=== PATIENT | female | born 2000 | race African-American/Black ===

== ENCOUNTER 2023-01-18 00:57 | Day surgery (SDC) | payer OTHER, SELFPAY ==
[2023-01-06 14:28] VITALS: BMI 45.1
--- NOTE | 2023-01-06 14:33 | PC.NURSE ---
Report to the Outpatient Waiting Room, entrance under the green pavilion located off [facility], at time 1215 on date 01/18/23. Planned Procedure Time: 1415. Time changes happen often and if your time is changed the preop area will call you the afternoon before. - You and your visitor will be asked to self-screen and do not enter if you have any COVID symptoms. - A mask is optional within the hospital at this time. Patients may have clear liquids (water, carbonated beverages, clear teas, apple juice) until 3 hours prior to surgery with a maximum of 20 ounces. - No food from midnight until time of surgery Take the following medications with a SIP of water the morning of surgery: NONE DO NOT STOP ANY OF YOUR OTHER PRESCRIPTION MEDICATIONS PRIOR TO SURGERY ?EXCEPT THE FOLLOWING Medications to discontinue per physician: VITAMINS/SUPPLEMENTS Date to take last dose: 01/14/23 Please no make-up, nail czech, hairspray, perfume, deodorant, or body powder the day of surgery. No jewelry (including any body piercings) or valuables the day of surgery, leave them at home. Please take a shower or bath the night before, or the morning of, surgery with an antibacterial soap. Wear comfortable, loose fitting clothing. - Jewelry must be removed prior to entering the operating room. Rings and piercings that are not removed may be cut off. - The hospital will not accept responsibility for valuables. - Please leave all valuables, including medications, at home the day of surgery. If you are going home after surgery, a licensed special education bus driver must drive you home. - NO public transportation without another adult if you receive anesthesia. - We recommend that an adult stay with you for 24 hours following discharge. - We also recommend that you do not drive, make important decision, drink alcoholic beverages, or take any drugs that were not prescribed by your health care provider for at least 24 hours after your discharge time. Follow any additional instructions given to you from your surgeon. If you or anyone in your household have experienced Covid symptoms in the past week, please notify your surgeon or the nurse liaison at the phone number below for possible testing. Telephone instructions given to PT - MATA BENAVIDEZ and asked if any additional questions and then verbalized understanding. Patient advised to call surgeon office or pre surgery nurse liaison [phone] if any additional questions.
--- NOTE | 2023-01-18 07:29 | WPDHPUPDATE1 ---
History and Physical Update Update Date/Time: 01/18/23 07:29 History and Physical has been reviewed, including an updated exam of the patient. There are NO changes in the patient's condition. Risks, benefits, and alternatives have been discussed and questions answered. Patient agrees to proceed with hysteroscopy with polypectomy.
--- NOTE | 2023-01-18 12:18 | WPDANESEPPF ---
Anes - Initial Pre Proc Eval Procedure: Operation Date: 01/18/23 14:15 Proposed Procedures p Hysteroscopy Dilation and Curettage with Polypectomy - Yudy Qureshi MD Date/Time: 01/18/23 12:18 Surgeon: Yudy Qureshi MD Pre Op Diagnosis: Endometrial Polyp Patient Data Age: 22 Gender: F Height: 1.68 m Weight: 127 kg Allergies Allergy/AdvReac Type Severity Reaction Status Date / Time No Known Allergies Allergy Unverified 01/06/23 14:27 Home Medications Medication Instructions Recorded Confirmed Type ergocalciferol (vitamin D2) 1,250 1,250 mcg PO WEEKLY 01/06/23 01/06/23 History mcg (50,000 unit) capsule metformin 500 mg tablet,extended 500 mg PO DAILY 01/06/23 01/06/23 History release 24 hr vits no.126-ferrous fum 1 tablet PO DAILY 01/06/23 01/06/23 History 28 mg iron-folic acid 800 mcg tablet (Classic ) Patient hx anesthesia problems: none Family hx anesthesia problems: none Results Review: All pre-operative results and documents have been reviewed as part of the pre-operative evaluation. [facility] Past Medical History Medical History History of polycystic ovarian syndrome Family History Family History Father Hypertension Mother Multiple sclerosis Social History Social History Smoking status: Never smoker Alcohol intake: current Drinks per week: 2 Alcohol use details: social Substance use: current Substance use type: marijuana Lack of Transportation: No Lack of Food: Never True Current Housing: I Have Housing Concerned About Future Housing: No Difficulty Paying Gas/Electric Bills: No Difficulty Paying for Meds: No Currently Unemployed: No Education: High School Diploma/GED Living arrangements: other Additional living arrangements comments: WITH BOYFRIEND Occupation/Education: occupation Gender identity (if verbalized by the patient): Female Sexual Orientation (if Verbalized by the Patient): Straight or Heterosexual Spiritual care concerns: No Anes - Eval Final PreProcedure Day of Procedure 01/18/23 12:18 Patient weight: morbidly obese Heart: regular rate and rhythm Lungs: clear to auscultation Airway: Mallampati scale class II Neurological: alert and oriented Last oral intake: >/= 8 hours ASA classification: III Emergent: no Anesthetic plan: proceed Anesthesia type and monitoring: general GIVS and standard monitoring Results Review: All pre-operative results and documents have been reviewed as part of the pre-operative evaluation. Informed Consent: The patient's anesthetic plan and its attendant risks and benefits were discussed with the patient/family/POA. Questions were solicited and answers provided to the satisfaction of the patient/family/POA.
[2023-01-18 12:23] VITALS: BP 135/90; PULSE 78; RESP 16; TEMP 36.2; O2SAT 100
[2023-01-18] MEDS: KETOROLAC 30 MG/ML VIAL (*BKC) IV PUSH (13:56)
[2023-01-18 14:00] VITALS: BP 146/76; PULSE 90; RESP 20; O2SAT 95
[2023-01-18] MEDS: LACTATED RINGERS 1,000 ML 30 ML IV CONT ×2 (14:00)
--- NOTE | 2023-01-18 14:00 | P.OP_ITS ---
Procedure Note - Detailed Date of Procedure 01/18/23 Pre-op Diagnosis Endometrial Polyp Post-op Diagnosis Same Procedure Performed Hysteroscopy, D&C, myomectomy Surgeon Yudy Qureshi MD Anesthesia MAC Findings Stenotic, long cervix. Uterus sounded to 10cm. Initially cavity was abnormal and hard to visualize due to multiple polyps. I proceeded with gentle D&C to visualize cavity. Tubal ostia visualized. Small fibroid was then noted after D&C, and removed. Good hemostasis noted. Description of Procedure Liseth was taken to the operating room where she was placed under sedation without complications. She was then prepped and draped in the usual sterile f ashion in the dorsal lithotomy position with her legs in low Edwin stirrups. A time-out was performed and no perioperative antibiotics were indicated. A bivalve speculum was placed within the vagina where the cervix was easily identified. The anterior lip of the cervix was grasped with a single-tooth tenaculum. The cervix was then serially dilated to allow for the hysteroscope. The hysteroscope was advanced into the uterine cavity with the above findings noted. A gentle curettage was then performed with a significant amount of polyps/tissue removed. The hysteroscope was then advanced back into the cavity and a small fibriod was noted. Using the tissue shaver a large portion of the fibroid was removed. The fundus appeared normal and bilateral tubal ostia visualized. Good hemostasis was noted. All instruments were removed from the vagina. Sponge, lap, instrument, and needle counts were correct at the end of the procedure. Patient was awoken from anesthesia and taken to recovery with plans of same-day discharge home. Estimated Blood Loss 5 IV Fluids 1,300 (Fluid deficit: 230cc) Pathology Yes (endometrial curettings and shaving) Complications No immediate complications Condition Stable Disposition Same day [facility] Billing Surgery - Charge Forward: Surgery Billing
[2023-01-18] MEDS: oxyCODONE HCL (*CRX) 5 MG TAB IR PO (14:28)
[2023-01-18 14:30] VITALS: BP 142/86; PULSE 71; RESP 16
[2023-01-18] MEDS: fentaNYL CITRATE INJ (*CRX) 100 MCG/2 ML VIAL 25 MCG IV PUSH ×2 (14:54→15:00)
[2023-01-18 15:00] VITALS: BP 138/86; PULSE 72; RESP 16
[2023-01-18 15:20] VITALS: BP 136/82; PULSE 71; RESP 16
== END 2023-01-18 15:30 | disposition home or self-care (01) ==
PROVIDERS: PCP Nurse Practitioner Family; Visit Provider Obstetrics & Gynecology
PROC: 0U5B8ZZ Destruction of Endometrium, Via Natural or Artificial Opening Endoscopic (ICD-10-PCS; CPT 58563; principal; 2023-01-18 14:15)
DX: N84.0 Polyp of corpus uteri (principal); E28.2 Polycystic ovarian syndrome; F12.90 Cannabis use, unspecified, uncomplicated; E66.01 Morbid (severe) obesity due to excess calories; Z68.41 Body mass index [BMI] 40.0-44.9, adult; Z79.84 Long term (current) use of oral hypoglycemic drugs
CPT/HCPCS: 58558; 88305; A9270; J1885; J2250; J2405; J2704; J3010; J7120

== ENCOUNTER 2023-03-20 10:32 | Outpatient (CLI) | payer OTHER, SELFPAY ==
[2023-03-20 11:57] LABS: Basophils Percent Auto 0.4 % (0.2-1.2); Eosinophils Percent Auto 0.1 % (0-4.4); Hematocrit 41.5 % (37.0-47.0); Hemoglobin 13.2 g/dL (12.0-15.0); Immature Granulocyte Absolute 0.02 K/mm3 (0.00-0.031); Immature Granulocyte Percent A 0.3 % (0-0.5); Lymphocytes Absolute Auto 1.74 K/mm3 (0.9-3.2); Lymphocytes Percent Auto 21.9 % (18.3-44.2); Mean Corpuscular HGB Conc 31.8 g/dl (32-36); Mean Corpuscular Hemoglobin 26.3 pg (26-34); Mean Corpuscular Volume 82.8 fl (80-100); Mean Platelet Volume 10.7 fl (7.4-10.4); Monocytes Absolute Auto 0.6 K/mm3 (0.1-0.6); Monocytes Percent Auto 6.9 % (2.6-8.5); Neutrophils Absolute Auto 5.6 K/mm3 (1.3-6.7); Neutrophils Percent Auto 70.4 % (45.5-73.1); Platelet Count Result 308 k/mm3 (150-375); Red Blood Count 5.01 M/mm3 (4.2-5.4); Red Cell Distribution Width 15.6 % (11.5-14.5); White Blood Count 7.9 K/mm3 (4.5-10.0)
[2023-03-20 12:09] LABS: Glucose 1 Hour PP 50gm Dose 156 mg/dL
[2023-03-20 13:12] LABS: Hepatitis B Surface Antigen Negative (Negative); Rubella IgG Antibody 25.3 IU/ML
[2023-03-22 13:03] LABS: Rapid Plasma Reagin Non-Reactive (NonReactive)
== END 2023-03-20 10:33 | disposition home or self-care (01) ==
LOC: ANHLAB 10:34
PROVIDERS: PCP Nurse Practitioner Family; Visit Provider Student in an Organized Health Care Education/Training Program
DX: N94.89 Other specified conditions associated with female genital organs and menstrual cycle (principal)
CPT/HCPCS: 36415; 82947; 84702; 85025; 85660; 86592; 86644; 86762; 86787; 86850; 86900; 86901; 87086; 87340

== ENCOUNTER 2023-03-27 08:51 | Outpatient (CLI) | payer OTHER, SELFPAY ==
[2023-03-27 09:24] LABS: Glucose Fasting Gestational 87 mg/dL (>/=95)
[2023-03-27 10:58] LABS: Glucose 1 Hour Gest 191 mg/dL (>/=180)
[2023-03-27 12:27] LABS: Glucose 2 Hour Gest 142 mg/dL (>/= 155)
[2023-03-27 12:46] LABS: Glucose 3 Hour Gest 46 mg/dL (>/=140)
== END 2023-03-27 08:52 | disposition home or self-care (01) ==
LOC: ANHLAB 08:52
PROVIDERS: PCP Nurse Practitioner Family; Visit Provider Student in an Organized Health Care Education/Training Program
DX: O99.810 Abnormal glucose complicating pregnancy (principal)
CPT/HCPCS: 36415; 82951; 82952

== ENCOUNTER 2023-08-15 21:05 | Observation (INO) | payer OTHER, SELFPAY ==
[2023-08-15 21:37] VITALS: BP 124/71; PULSE 74
[2023-08-15 21:45] VITALS: BP 122/74; PULSE 79
[2023-08-15 21:47] LABS: Glucose Point of Care 59 mg/dl (65-105)
[2023-08-15 22:00] VITALS: BP 106/77; PULSE 86
[2023-08-15 22:25] VITALS: BMI 43.7
--- NOTE | 2023-08-15 22:25 | OBADM ---
This patient, Liseth Rodríguez, admitted to the OB room OB Post 116 for observation. Patient/family oriented to hospital policies and general routines including ID bracelet, bed and alarms, visiting hours, pain management, procedures, bathroom and other care routines, personal items, smoking policy, room service/diet, and visiting hours. Patient/Family are encouraged to report perceived risks to care and to ask questions if they do not understand what they are told or what they should do.
--- NOTE | 2023-08-18 09:23 | PM.OBTRLD ---
OB - Triage/Final Diagnosis Visit Information Reason for evaluation: threatened labor Comments/Additional reasons for admission: I have assessed the risk for this patient, Liseth Rodríguez, and determined that she would benefit from observation care. Evaluation Laboratory results: Laboratory Tests 08/15/23 21:41 POC Capillary Glucose 59 L*
== END 2023-08-15 22:37 | disposition home or self-care (01) ==
PROVIDERS: Admitting Provider Student in an Organized Health Care Education/Training Program; PCP Nurse Practitioner Family; Visit Provider Obstetrics & Gynecology
DX: O47.03 False labor before 37 completed weeks of gestation, third trimester (principal); Z3A.29 29 weeks gestation of pregnancy
CPT/HCPCS: 82948; G0378; G0379

== ENCOUNTER 2023-09-14 09:47 | Outpatient (CLI) | payer OTHER, SELFPAY ==
[2023-09-14 10:15] VITALS: BP 137/89; PULSE 80
[2023-09-14 10:20] LABS: Basophils Percent Auto 0.3 % (0.2-1.2); Eosinophils Percent Auto 0.3 % (0-4.4); Hematocrit 33.5 % (37.0-47.0); Hemoglobin 10.7 g/dL (12.0-15.0); Immature Granulocyte Absolute 0.02 K/mm3 (0.00-0.031); Immature Granulocyte Percent A 0.3 % (0-0.5); Lymphocytes Absolute Auto 1.61 K/mm3 (0.9-3.2); Lymphocytes Percent Auto 23.1 % (18.3-44.2); Mean Corpuscular HGB Conc 31.9 g/dl (32-36); Mean Corpuscular Hemoglobin 26.1 pg (26-34); Mean Corpuscular Volume 81.7 fl (80-100); Monocytes Absolute Auto 0.7 K/mm3 (0.1-0.6); Monocytes Percent Auto 9.3 % (2.6-8.5); Neutrophils Absolute Auto 4.7 K/mm3 (1.3-6.7); Neutrophils Percent Auto 66.7 % (45.5-73.1); Platelet Count Result 236 k/mm3 (150-375); Red Cell Distribution Width 14.9 % (11.5-14.5)
[2023-09-14 10:31] VITALS: BP 130/79; PULSE 75
[2023-09-14 10:31] LABS: Total Protein Urine Random 28 mg/dL
[2023-09-14 10:34] LABS: Alanine Aminotransferase 17 U/L (6-35); Albumin Level 3.5 g/dL (3.5-5.1); Alkaline Phosphatase 109 U/L (38-126); Anion Gap 7 mmol/L (4-12); Aspartate Amino Transferase 25 U/L (14-36); Bilirubin,Total 0.3 mg/dL (0.2-1.3); Blood Urea Nitrogen 8 mg/dL (7-17); Calcium 9.5 mg/dL (8.4-10.2); Carbon Dioxide 23 mmol/L (22-30); Chloride 107 mmol/L (98-107); Estimated Glomerular Filt Rate > 60; Glucose 80 mg/dL (65-110); Potassium 3.8 mmol/L (3.4-5.0); Sodium 137 mmol/L (137-145)
[2023-09-14 10:36] LABS: Appearance Urine Cloudy (Clear); Bacteria Urine 4+ /hpf; Bilirubin Urine Negative (Negative); Blood Urine Negative (Negative); Color Urine Dark Yellow (Yellow); Glucose Urine UA Negative (Negative); Ketones Urine Trace mg/dL (Negative); Leukocyte Esterase Ur Trace LEU/UL (Negative); Need Manual Microscopic Reviewed; Nitrate Urine Negative (Negative); Protein Urine 2+ mg/dL (Negative); Specific Grav Ur 1.027 (1.001-1.035); Squamous Epithelial Cell Urine Few /hpf (Few); WBC Urine 21-50 /hpf (0-3)
[2023-09-14 10:38] LABS: Add Urine Microscopic? YES
[2023-09-14 11:01] VITALS: BP 125/76; PULSE 66
[2023-09-14 11:15] VITALS: BP 141/94; PULSE 76
[2023-09-14 11:25] VITALS: BP 130/79; PULSE 75
[2023-09-14 11:27] LABS: Creatinine Urine 440.8 mg/dL; Ur Ttl Prot Creatinine Ratio 0.06 mg/mg (0-0.20)
[2023-09-14 11:31] VITALS: BP 130/83; PULSE 72
== END 2023-09-14 12:00 | disposition home or self-care (01) ==
LOC: ANHOBOP 09:52 → ANHOBPP 09:56
PROVIDERS: PCP Nurse Practitioner Family; Visit Provider Student in an Organized Health Care Education/Training Program
DX: O13.9 Gestational [pregnancy-induced] hypertension without significant proteinuria, unspecified trimester (principal)
CPT/HCPCS: 36415; 59025; 80053; 81001; 82570; 84156; 84550; 85025; 87086; 99199

== ENCOUNTER 2023-09-21 07:21 | Inpatient (IN) | payer OTHER, SELFPAY ==
[2023-09-21] VITALS (85 sets, daily range): BP systolic 109–177; BP diastolic 76–118; PULSE 51–131; RESP 13–20; TEMP 36.1–36.9; O2SAT 87–100; BMI 47.0
--- NOTE | ~2023-09-21 | US_ITS ---
EXAMINATION: US OB BPP wo non-stress DATE: 09/21/2023 09:49 INDICATION: Preeclampsia during third trimester TECHNIQUE: Real-time pelvic ultrasound was performed. The interpreting radiologist was not present fo r the study. COMPARISON: None. FINDINGS: There is a single living fetus in vertex lie with vertex to maternal left in the spine position ed caudally. The placenta is anterior and not low-lying. Cervical length measures 4.8 cm which is no rmal. Amniotic fluid volume is subjectively normal with normal deepest vertical pocket of 5.3 cm. Fet al heart rate is 118 beats per minute (bpm). Biophysical profile performed by the technologist: breathing (30 sec sustained breathing in 30 minutes): 2 out of 2 movement (3 gross body movements in 30 minutes): 2 out of 2 tone (one episode of mocxshm-[id number]-kpxybws limb movement): 2 out of 2 Amniotic fluid pocket (2 cm): 2 out of 2 Total score: 8 out of 8 IMPRESSION: 1. Single living fetus in transverse lie with heart rate of 118 bpm. 2. Biophysical profile 8 out of 8. Reviewed, dictated and finalized at location B.
--- NOTE | 2023-09-21 07:47 | PM.OBTRLD ---
OB - Triage/Final Diagnosis Visit Information Comments/Additional reasons for admission: I have assessed the risk for this patient, Liseth Rodríguez, and determined that she would benefit from observation care. Evaluation Vital signs: Vital Signs - 24 hr 09/21/23 07:41 09/21/23 07:45 Pulse Rate 74 82 Blood Pressure 152/94 H 154/98 H
[2023-09-21 08:15] LABS: Basophils Percent Auto 0.4 % (0.2-1.2); Eosinophils Percent Auto 0.5 % (0-4.4); Hemoglobin 10.1 g/dL (12.0-15.0); Immature Granulocyte Absolute 0.03 K/mm3 (0.00-0.031); Immature Granulocyte Percent A 0.4 % (0-0.5); Lymphocytes Percent Auto 26.3 % (18.3-44.2); Mean Corpuscular HGB Conc 31.6 g/dl (32-36); Mean Corpuscular Hemoglobin 25.8 pg (26-34); Mean Corpuscular Volume 81.8 fl (80-100); Mean Platelet Volume 12.2 fl (7.4-10.4); Monocytes Percent Auto 11.7 % (2.6-8.5); Neutrophils Absolute Auto 5.1 K/mm3 (1.3-6.7); Neutrophils Percent Auto 60.7 % (45.5-73.1); Platelet Count Result 231 k/mm3 (150-375); Red Blood Count 3.91 M/mm3 (4.2-5.4); Red Cell Distribution Width 15.3 % (11.5-14.5); White Blood Count 8.4 K/mm3 (4.5-10.0)
[2023-09-21 08:21] LABS: Alanine Aminotransferase 13 U/L (6-35); Albumin Level 3.3 g/dL (3.5-5.1); Alkaline Phosphatase 106 U/L (38-126); Anion Gap 5 mmol/L (4-12); Aspartate Amino Transferase 20 U/L (14-36); Bilirubin,Total 0.3 mg/dL (0.2-1.3); Blood Urea Nitrogen 9 mg/dL (7-17); Calcium 9.3 mg/dL (8.4-10.2); Carbon Dioxide 23 mmol/L (22-30); Chloride 109 mmol/L (98-107); Estimated Glomerular Filt Rate > 60; Glucose 65 mg/dL (65-110); Potassium 4.1 mmol/L (3.4-5.0); Sodium 137 mmol/L (137-145)
[2023-09-21 08:26] LABS: Creatinine Urine 199.1 mg/dL
[2023-09-21 08:29] LABS: Total Protein Urine Random > 600 mg/dL; Ur Ttl Prot Creatinine Ratio > 3.01 mg/mg (0-0.20)
[2023-09-21 08:33] LABS: Appearance Urine Cloudy (Clear); Bacteria Urine 4+ /hpf; Bilirubin Urine Negative (Negative); Blood Urine Negative (Negative); Color Urine Yellow (Yellow); Glucose Urine UA Negative (Negative); Ketones Urine Trace mg/dL (Negative); Leukocyte Esterase Ur Negative LEU/UL (Negative); Need Manual Microscopic Reviewed; Nitrate Urine Negative (Negative); Protein Urine 4+ mg/dL (Negative); Specific Grav Ur 1.021 (1.001-1.035); Squamous Epithelial Cell Urine Occasional /hpf (Few); Urobilinogen Urine 0.2 mg/dL (<2.0); WBC Urine 21-50 /hpf (0-3); pH Urine 6.5 (5.0-9.0)
[2023-09-21 08:37] LABS: Add Urine Microscopic? YES
[2023-09-21] MEDS: LABETALOL HCL INJ 100 MG/20 ML VIAL 20 MG IV PUSH (09:11)
[2023-09-21] MEDS: BETAMETHASONE SOD PHOS/ACETATE 30 MG/5 ML VIAL 12 MG IM (09:39)
[2023-09-21] MEDS: LABETALOL HCL INJ 100 MG/20 ML VIAL 40 MG IV PUSH ×2 (09:47→13:20)
[2023-09-21] MEDS: ACETAMINOPHEN 500 MG TABLET 1000 MG PO (10:32)
[2023-09-21] MEDS: LACTATED RINGERS 1,000 ML 125 ML IV CONT ×2 (12:34→13:23)
--- NOTE | 2023-09-21 12:38 | PM.IMHP ---
H&P: HPI History of Present Illness Date/Time: 09/21/23 12:38 Chief Complaint: intrauterine preeclampsia with severe features gestation transverse lie Narrative: 22 yo G1 who presents at 34w6d with complaint of severe RUQ pain. Pt had been noted to have an elevated BP outpatient last week. Her [facility] labs at that time were wnl. Blood pressures were elevated to severe range on evaluation today. UPCR had increased from 0.06 to 3.01. Pt required IV labetalol to control blood pressures. Review of Systems Cardiovascular: Cardiovascular: Denies chest pain, Denies leg edema, Denies palpitations, Denies dyspnea and Denies dyspnea on exertion Respiratory: Respiratory: Denies cough, Denies dyspnea and Denies dyspnea on exertion Gastrointestinal: Gastrointestinal: Denies abdominal pain, Denies constipation, Denies diarrhea, Denies nausea and Denies vomiting Genitourinary: Genitourinary: Denies hematuria, Denies urinary frequency, Denies dysuria, Denies pelvic pain, Denies urinary incontinence and Denies vaginal discharge Neurologic: Reports system reviewed and no additional complaints, except as documented Psychiatric: Psychiatric: Reports no additional psychiatric complaints Endocrine: Endocrine: Denies palpitations [facility] Past Medical History Medical History Abnormal glucose tolerance in History of polycystic ovarian syndrome Suppression of menses Surgical History Surgical History History of gynecologic surgery Hysteroscopy, D&C, myomectomy Family History Family History Father Hypertension Mother Multiple sclerosis Social History Social History Smoking status: Never smoker Second hand tobacco smoke exposure: No Alcohol intake: current Drinks per week: 2 Alcohol use details: social Substance use: former Substance use type: marijuana Do You Feel Safe in your Home?: Yes Lack of Transportation: No Lack of Food: Never True Current Housing: I Have Housing Concerned About Future Housing: No Difficulty Paying Gas/Electric Bills: No Difficulty Paying for Meds: No Currently Unemployed: No Education: Bachelor's Degree Difficulty w/ Childcare or Family Care: No Living arrangements: other Additional living arrangements comments: WITH BOYFRIEND Occupation/Education: occupation Gender identity (if verbalized by the patient): Female Sexual Orientation (if Verbalized by the Patient): Straight or Heterosexual Spiritual care concerns: No Meds Home Medications and Allergies Home Medications Medication Instructions Recorded Confirmed Type ergocalciferol (vitamin D2) 1,250 1,250 mcg PO WEEKLY 01/06/23 09/21/23 History mcg (50,000 unit) capsule vits no.126-ferrous fum 1 tablet PO DAILY 01/06/23 09/21/23 History 28 mg iron-folic acid 800 mcg tablet (Classic ) aspirin 81 mg tablet,delayed 81 mg PO QHS #90 tabs 04/20/23 09/21/23 Rx release lidocaine 3 %-hydrocortisone 0.5 % 1 applic RECTAL BID #98 grams 07/07/23 09/21/23 Rx rectal cream witch jacqueline 50 % topical pads 1 pad topical BID #40 ea 07/07/23 09/21/23 Rx (Tucks (witch jacqueline)) docusate sodium 100 mg capsule 100 mg PO DAILY 07/20/23 09/21/23 History (Colace) ferrous sulfate 325 mg (65 mg 325 mg PO DAILY 08/17/23 09/21/23 History iron) tablet Allergies Allergy/AdvReac Type Severity Reaction Status Date / Time No Known Allergies Allergy Verified 09/14/23 09:11 Vital Signs Vital Signs - 24 hr 09/21/23 07:41 09/21/23 07:45 09/21/23 08:00 Pulse Rate 74 82 83 Blood Pressure 152/94 H 154/98 H 158/96 H 09/21/23 08:15 09/21/23 08:30 09/21/23 08:45 Pulse Rate 74 67 73 Blood Pressure 159/96 H 161/104 H 158/116 H 09/21/23
[2023-09-21 12:44] LABS: HIV 1/2 Ab P24 Ag Result Negative (Negative)
[2023-09-21] MEDS: FAMOTIDINE 20 MG/2 ML VIAL IV PUSH (13:21)
[2023-09-21] MEDS: ONDANSETRON INJ 4 MG/2 ML VIAL IV PUSH (13:21)
--- NOTE | 2023-09-21 13:35 | WPDANESEPPF ---
Anes - Initial Pre Proc Eval Date/Time: 09/21/23 13:35 Surgeon: Brodie Elias MD Pre Op Diagnosis: abdominal pain Patient Data Age: 22 Gender: F Height: 1.68 m Weight: 132 kg Last Vital Signs Pulse 78 09/21/23 13:31 BP 142/78 H 09/21/23 13:31 Allergies Allergy/AdvReac Type Severity Reaction Status Date / Time No Known Allergies Allergy Verified 09/14/23 09:11 Home Medications Medication Instructions Recorded Confirmed Type ergocalciferol (vitamin D2) 1,250 1,250 mcg PO WEEKLY 01/06/23 09/21/23 History mcg (50,000 unit) capsule vits no.126-ferrous fum 1 tablet PO DAILY 01/06/23 09/21/23 History 28 mg iron-folic acid 800 mcg tablet (Classic ) aspirin 81 mg tablet,delayed 81 mg PO QHS #90 tabs 04/20/23 09/21/23 Rx release lidocaine 3 %-hydrocortisone 0.5 % 1 applic RECTAL BID #98 grams 07/07/23 09/21/23 Rx rectal cream witch jacqueline 50 % topical pads 1 pad topical BID #40 ea 07/07/23 09/21/23 Rx (Tucks (witch jacqueline)) docusate sodium 100 mg capsule 100 mg PO DAILY 07/20/23 09/21/23 History (Colace) ferrous sulfate 325 mg (65 mg 325 mg PO DAILY 08/17/23 09/21/23 History iron) tablet Laboratory Tests 09/21/23 09/21/23 09/21/23 07:44 07:54 07:56 WBC 8.4 K/mm3 (4.5-10.0) RBC 3.91 L M/mm3 (4.2-5.4) Hgb 10.1 L g/dL (12.0-15.0) Hct 32.0 L % (37.0-47.0) MCV 81.8 fl (80-100) MCH 25.8 L pg (26-34) MCHC 31.6 L g/dl (32-36) RDW 15.3 H % (11.5-14.5) Plt Count 231 k/mm3 (150-375) MPV 12.2 H fl (7.4-10.4) Immature Gran % (Auto) 0.4 % (0-0.5) Neut % (Auto) 60.7 % (45.5-73.1) Lymph % (Auto) 26.3 % (18.3-44.2) [place] % (Auto) 11.7 H % (2.6-8.5) Eos % (Auto) 0.5 % (0-4.4) Baso % (Auto) 0.4 % (0.2-1.2) Lymph # (Auto) 2.20 K/mm3 (0.9-3.2) [place] # (Auto) 1.0 H K/mm3 (0.1-0.6) Eos # (Auto) 0.0 K/mm3 (0-0.3) Baso # (Auto) 0.0 K/mm3 (0.0-0.1) Abs Immat Gran (auto) 0.03 K/mm3 (0.00-0.031) Absolute Neuts (auto) 5.1 K/mm3 (1.3-6.7) Absolute Nucleated RBC 0.000 K/mm3 (0.0-0.012) Nucleated RBC % 0.0 % (0.0-0.2) Sodium 137 mmol/L (137-145) Potassium 4.1 mmol/L (3.4-5.0) Chloride 109 H mmol/L (98-107) Carbon Dioxide 23 mmol/L (22-30) Anion Gap 5 mmol/L (4-12) BUN 9 mg/dL (7-17) Creatinine 0.60 L mg/dL (0.7-1.0) Estim Creat Clear Calc Not Reportable Estimated GFR > 60 (59 - ) Glucose 65 mg/dL (65-110) Uric Acid 6.0 mg/dL (2.5-7.5) Calcium 9.3 mg/dL (8.4-10.2) Total Bilirubin 0.3 mg/dL (0.2-1.3) AST 20 U/L (14-36) ALT 13 U/L (6-35) Alkaline Phosphatase 106 U/L (38-126) Total Protein 7.0 g/dL (6.3-8.2) Albumin 3.3 L g/dL (3.5-5.1) Urine Color Yellow (Yellow) Urine Appearance Cloudy H (Clear) Urine pH 6.5 (5.0-9.0) Ur Specific [place] 1.021 (1.001-1.035) Urine Protein 4+ H mg/dL (Negative) Urine Glucose (UA) Negative mg/dL (Negative) Urine Ketones Trace H mg/dL (Negative) Ur Blood (Man) Negative (Negative) Urine Nitrate Negative (Negative) Urine Bilirubin Negative (Negative) Urine Urobilinogen 0.2 mg/dL (<2.0) Add Ur Microanalysis Reviewed Leukocyte Esterase Rfl Negative GILBERTO/UL (Negative) Urine RBC 3-5 H /hpf (0-2) Urine WBC 21-50 H /hpf (0-3) Ur Squamous Epith Cells Occasional /hpf (Few) Urine Bacteria 4+ H /hpf Urine Casts 11-20 U Random Total Protein > 600 mg/
[2023-09-21] MEDS: ceFAZolin 3 GM/D5W 100 ML 100 ML IVPB (13:41)
--- NOTE | 2023-09-21 14:55 | SUR.OPER ---
heart tone confirmed 125 bpm.
--- NOTE | 2023-09-21 15:44 | W.PM.OBCSD ---
OB - Delivery Note Procedure Delivery date: 09/21/23 Pre-op diagnosis: Preeclampsia w severe features and Other ( malpresentation ) Post-op Diagnosis: Same Induction method: None Delivery monitor: External FHT Prior to decision for section, ACOG/SM labor guidelines were considered and discussed with the patient and staff. Decision made to proceed with the section.: Yes Procedure Performed: Primary Primary branch: low cervical, transverse Surgeon: Brodie Elias MD Anesthesia type: General Description of Procedure/Findings: The patient was taken to the operating room. A combined spinal epidural anesthesic was attempted for 1 hour but was unable to obtain adequate pain control. Decision was made to proceed with general anesthesia. The patient was placed in a supine position with a slight left lateral tilt. A neal catheter was placed with return of clear urine. A Bovie grounding pad was placed. Surgical prep was performed and surgical drapes were placed. A surgical time out was performed. A Pfannenstiel skin incision was then made with the scalpel and carried through to the underlying layer of fascia. The fascia was then incised. The incision was extended bluntly. The underlying rectus muscles were identified and in the midline. The peritoneum was identified and entered bluntly. The peritoneal incision was then extended superiorly and inferiorly with good visualization of the bladder. A Mobius ring retractor was placed for better visualization. The uterus was inspected for rotation. head was identified. Gentle pressure was applied to the head and the buttock was rotated to assure cephalic presentation. A low-transverse uterine incision was made sharply with the scalpel and entry was made into the uterine cavity. The uterine incision was extended laterally bluntly. The bladder blade was removed and the fetus was delivered atraumatically. The umbilical cord was clamped twice and cut. The infant was handed off to the waiting staff. A second segment of umbilical cord was clamped and cut for cord blood gasses. Cord blood was collected for determination of the blood type and for direct [place]. The placenta was delivered manually without difficulty. The placenta appeared grossly normal and complete. The uterus remained in situ and cleared of all clots and debris. A intrauterine mass was identified and suspected to be a small fibroid. The fibroid was attached to the posterior uterine wall with a small stalk. The mass was removed from the stalk with Bovie cautery and sent for pathology. The uterine incision was repaired using 0-Monocryl suture in a running fashion. A second layer of 0 Monocryl suture was used in an imbricating fashion to obtain excellent hemostasis and uterine strength. The uterine closure was inspected for hemostasis. Hemaderm powder was added for hemostasis. The posterior aspect of the uterus and the broad ligaments were inspected and the posterior cul-de-sac cleared of fluid and blood clots. The uterine closure was again inspected and found to be hemostatic. The Mobius ring retractor was removed from the abdomen. The pericolic gutters were inspected and were cleared of all blood clots and debris. The uterine closure was then re inspected to ensure hemostasis as were all subfascial tissues. The peritoneum was closed using 3-0 vicryl in a running fashion. The fascia was reapproximated with 0-vicryl in a running fashion. The subcutaneous tissue was irrigated and hemostasis achieved with electrocautery. It was reapproximated with 3-0 vicryl in a running fashion. The skin was closed with yuli. A sterile dressing was applied to the wound. The patient tolerated the procedure well. Sponge, lap and needle counts were correct times three. The patient was taken to recovery in stable condition and without anticipated complications. Specimen: Yes (Placenta) Est
[2023-09-21] MEDS: MORPHINE SULFATE INJ (*CRX) 10 MG/ML AMP 3 MG IV PUSH ×3 (16:18→16:45)
[2023-09-21] MEDS: HYDROmorphon 0.2MG/ML PCA(*CRX 6 MG/30 ML PCA.VIAL IV CONT (18:06)
--- NOTE | 2023-09-21 18:15 | SUR.PHASEI ---
called Dr. Elias updated elevated BP. order received to start magnesium therapy
[2023-09-21] MEDS: KETOROLAC 15 MG/ML VIAL (*BKC) IV PUSH (19:07)
[2023-09-21] MEDS: KCL 20 MEQ/D5/0.45% SOD CHL 1,000 ML 125 ML IV CONT (19:07)
[2023-09-21] MEDS: MAGNESIUM SULF 4 GM/WATER100ML 4 GM/100 ML BAG IVPB (19:08)
[2023-09-21] MEDS: MAGNESIUM SULF 20GM/WATER500ML 500 ML 50 MG IV CONT (19:51)
[2023-09-22] VITALS (7 sets, daily range): BP systolic 119–158; BP diastolic 75–90; PULSE 78–95; RESP 16–18; TEMP 36.4–37.2; O2SAT 98–100
[2023-09-22] MEDS: LIDOCAINE 5% PATCH 1 PATCH TRANSDERM (00:07)
[2023-09-22] MEDS: KETOROLAC 15 MG/ML VIAL (*BKC) IV PUSH ×3 (01:01→13:14)
[2023-09-22] MEDS: ACETAMINOPHEN 325 MG TABLET 650 MG PO ×4 (01:01→19:18)
[2023-09-22 05:31] LABS: Basophils Percent Auto 0.1 % (0.2-1.2); Hematocrit 29.7 % (37.0-47.0); Immature Granulocyte Absolute 0.15 K/mm3 (0.00-0.031); Immature Granulocyte Percent A 0.9 % (0-0.5); Lymphocytes Absolute Auto 1.23 K/mm3 (0.9-3.2); Lymphocytes Percent Auto 7.1 % (18.3-44.2); Mean Corpuscular HGB Conc 33.7 g/dl (32-36); Mean Corpuscular Hemoglobin 26.9 pg (26-34); Mean Corpuscular Volume 79.8 fl (80-100); Mean Platelet Volume 12.3 fl (7.4-10.4); Monocytes Absolute Auto 1.4 K/mm3 (0.1-0.6); Monocytes Percent Auto 8.2 % (2.6-8.5); Neutrophils Absolute Auto 14.5 K/mm3 (1.3-6.7); Neutrophils Percent Auto 83.7 % (45.5-73.1); Platelet Count Result 252 k/mm3 (150-375); Red Blood Count 3.72 M/mm3 (4.2-5.4); Red Cell Distribution Width 15.3 % (11.5-14.5); White Blood Count 17.3 K/mm3 (4.5-10.0)
[2023-09-22] MEDS: MAGNESIUM SULF 20GM/WATER500ML 500 ML 50 MG IV CONT ×3 (05:54→16:32)
[2023-09-22] MEDS: HYDROcodone/acetaminophen (*CRX) 10-325 MG TABLET 1 TAB PO ×4 (06:47→22:59)
[2023-09-22] MEDS: MULTIVIT/MIN/PREN/FOL AC/IRON TABLET 1 TAB PO (06:48)
[2023-09-22] MEDS: DOCUSATE SODIUM 100 MG CAPSULE PO ×2 (06:48→16:32)
[2023-09-22] MEDS: SIMETHICONE 80 MG TAB.CHEW PO ×3 (06:48→16:32)
[2023-09-22] MEDS: LACTATED RINGERS 1,000 ML 75 ML (08:20)
--- NOTE | 2023-09-22 10:01 | PC.NURSE ---
[id number]. Introductions were made, then consulted with patient to assess needs related to . Discussed with mother her?plans to feed?her infant and the?experience so far. Infant was transferred to [facility] after delivery so mom has been pumping. Instructions given on cleaning, care, usage, that there should be no pain, pumping schedule for milk production, collection, and storage of human milk. Patient was assessed for correct placement, flange size, to pump for comfort and nipple stretching/stimulation for adequate milk production every 3 hours (8 times in 24 hours) 1-2 times at night. Parents are encouraged to record the pumping schedule on the feeding sheet.?Mother voiced understanding of the education shared along with mom/baby guide and the pump measurement, flange fit handout for additional resource information. Resources provided for inpatient and outpatient services with the feeding sheet, mom/baby guide and name written on the communication board. Mother voiced understanding of information and will call if there is a request for assistance.Reported to the Primary RN.
--- NOTE | 2023-09-22 10:24 | PM.OBPNVD ---
OB - PN: Subj Subjective Date/time seen: 09/22/23 10:24 Patient comments: no complaints, pain well controlled, tolerating diet and flatus present [place] baby status: NICU OB - PN: Obj Data Labs 09/22/23 05:18 09/21/23 07:56 Labs: Laboratory Results - last 24 hr 09/21/23 09/21/23 09/22/23 07:54 11:08 05:18 WBC 17.3 H RBC 3.72 L Hgb 10.0 L Hct 29.7 L MCV 79.8 L MCH 26.9 MCHC 33.7 RDW 15.3 H Plt Count 252 MPV 12.3 H Immature Gran % (Auto) 0.9 H Neut % (Auto) 83.7 H Lymph % (Auto) 7.1 L [place] % (Auto) 8.2 Eos % (Auto) 0.0 Baso % (Auto) 0.1 L Lymph # (Auto) 1.23 [place] # (Auto) 1.4 H Eos # (Auto) 0.0 Baso # (Auto) 0.0 Abs Immat Gran (auto) 0.15 H Absolute Neuts (auto) 14.5 H Absolute Nucleated RBC 0.000 Nucleated RBC % 0.0 HIV 1&2 Ab/P24 Ag 4thGn Negative Blood Type B Positive Antibody Screen Negative OB - PN A/P Plan day: 1 Plan: routine care Comments: patient doing well H/H stable will continue magnesiums for 24 hr PP for prevention of eclampsia BP normal to mild range incision covered in BNAG dressing pain moderately controlled. 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 and transition to PO pain meds neal removed, voiding spontaneously continue routine post op care Time Spent With Patient Time: Total time spent is greater than 50% in coordination of care (as documented) at patient's floor/unit and/or counseling patient: Time with patient: less than 15 minutes Review of Systems Constitutional: Constitutional: Reports no additional constitutional complaints Cardiovascular: Cardiovascular: Reports no additional cardiovascular complaints Respiratory: Respiratory: Reports no additional respiratory complaints Gastrointestinal: Gastrointestinal: Reports no additional gastrointestinal complaints Genitourinary: Genitourinary: Reports no additional female genitourinary complaints Exam Const: General: comfortable and no acute distress Resp: Effort & Inspection: normal respiratory effort Auscultation: clear to auscultation bilaterally Cardio: Rate: regular rate GI: GI Palp: Yes Soft to palpation, Yes Tenderness to palpation present (GI) (around incision ) and No Guarding due to palpation present (GI) Auscultation: normal bowel sounds Other: incision C/D/I, covered with Dermabond Psych: Appearance: grossly normal Mental Status: mental status grossly normal Affect: normal affect
[2023-09-22] MEDS: HYDROcodone/acetaminophen (*CRX) 5-325 MG TABLET 1 TAB PO ×2 (11:59→13:17)
[2023-09-22] MEDS: CALCIUM CARBONATE (TUMS) 500 MG (200 MG ELEMENTAL) PO (12:13)
[2023-09-22 13:43] LABS: Rapid Plasma Reagin Non-Reactive (NonReactive)
--- NOTE | 2023-09-22 15:39 | WPDANESPN ---
Anes - Prog Note Post-Op Date/Time: 09/22/23 15:39 Cardiovascular status: normal Respiratory status: normal Airway patency: baseline Mental status: baseline Post-Op hydration status: normal Vital Signs: Last Vital Signs Temp 36.9 C 09/22/23 12:36 Pulse 95 09/22/23 12:36 Resp 18 09/22/23 12:36 BP 141/90 H 09/22/23 12:36 Pulse Ox 99 09/22/23 12:36 O2 Del Method Room Air 09/21/23 18:30 O2 Flow Rate 5 09/21/23 16:45 Pain Score (VAS): 06/29 I/O: Intake & Output 09/21/23 09/22/23 09/22/23 23:59 07:59 15:59 Intake Total 440 1470.8 Output Total 395 2420 1400 Balance 45 -949.2 -1400 Laboratory Tests 09/22/23 05:18 09/21/23 07:56 09/21/23 09/22/23 11:08 05:18 WBC 17.3 H RBC 3.72 L Hgb 10.0 L Hct 29.7 L MCV 79.8 L MCH 26.9 MCHC 33.7 RDW 15.3 H Plt Count 252 MPV 12.3 H Immature Gran % (Auto) 0.9 H Neut % (Auto) 83.7 H Lymph % (Auto) 7.1 L [place] % (Auto) 8.2 Eos % (Auto) 0.0 Baso % (Auto) 0.1 L Lymph # (Auto) 1.23 [place] # (Auto) 1.4 H Eos # (Auto) 0.0 Baso # (Auto) 0.0 Abs Immat Gran (auto) 0.15 H Absolute Neuts (auto) 14.5 H Absolute Nucleated RBC 0.000 Nucleated RBC % 0.0 RPR Non-reactive Post-procedural complaints: nausea Patient Feedback: Patient satisfied with anesthetic care.
[2023-09-22] MEDS: IBUPROFEN 600 MG TABLET PO (19:18)
[2023-09-22] MEDS: NIFEdipine 30 MG TAB.ER.24 PO (22:59)
[2023-09-23] MEDS: LIDOCAINE 5% PATCH 1 PATCH TRANSDERM (00:34)
[2023-09-23] MEDS: IBUPROFEN 600 MG TABLET PO ×4 (00:34→20:04)
[2023-09-23] MEDS: ACETAMINOPHEN 325 MG TABLET 650 MG PO ×4 (00:34→20:05)
[2023-09-23] MEDS: SIMETHICONE 80 MG TAB.CHEW PO ×4 (00:37→20:04)
[2023-09-23 00:49] VITALS: BP 145/83; PULSE 89
[2023-09-23] MEDS: HYDROcodone/acetaminophen (*CRX) 10-325 MG TABLET 1 TAB PO ×2 (04:27→15:15)
[2023-09-23 05:12] LABS: Hematocrit 27.5 % (37.0-47.0); Hemoglobin 8.7 g/dL (12.0-15.0); Mean Corpuscular HGB Conc 31.6 g/dl (32-36); Mean Corpuscular Hemoglobin 26.2 pg (26-34); Mean Corpuscular Volume 82.8 fl (80-100); Mean Platelet Volume 11.5 fl (7.4-10.4); Platelet Count Result 253 k/mm3 (150-375); Red Blood Count 3.32 M/mm3 (4.2-5.4); Red Cell Distribution Width 15.7 % (11.5-14.5); White Blood Count 15.3 K/mm3 (4.5-10.0)
[2023-09-23 05:15] VITALS: BP 145/88; PULSE 72
[2023-09-23 06:33] LABS: Alanine Aminotransferase 13 U/L (6-35); Albumin Level 3.2 g/dL (3.5-5.1); Alkaline Phosphatase 94 U/L (38-126); Anion Gap 4 mmol/L (4-12); Aspartate Amino Transferase 24 U/L (14-36); Bilirubin,Total 0.2 mg/dL (0.2-1.3); Blood Urea Nitrogen 9 mg/dL (7-17); Calcium 8.5 mg/dL (8.4-10.2); Carbon Dioxide 25 mmol/L (22-30); Chloride 107 mmol/L (98-107); Estimated CRCL calculation 173 ml/min; Estimated Glomerular Filt Rate > 60; Glucose 82 mg/dL (65-110); Potassium 4.4 mmol/L (3.4-5.0); Sodium 136 mmol/L (137-145)
[2023-09-23] MEDS: DOCUSATE SODIUM 100 MG CAPSULE PO ×2 (07:09→15:15)
[2023-09-23] MEDS: MULTIVIT/MIN/PREN/FOL AC/IRON TABLET 1 TAB PO (07:09)
[2023-09-23 07:15] VITALS: BP 140/83; PULSE 84; RESP 18; TEMP 36.7; O2SAT 100
--- NOTE | 2023-09-23 07:28 | PM.OBPNVD ---
OB - PN: Subj Subjective Date/time seen: 09/23/23 07:39 Narrative: POD#2 Liseth reports doing ok today. Her bleeding is driver starting gate. Her pain is controlled, more when moving/getting up. She is tolerating regular diet, voiding, passing gas. She denies any issues with her incision. She is pumping; son was transferred to [facility]; doing ok, would like to go see him. Magnesium was discontinued yesterday and BPs were noted to be in the moderate range; BP meds started last night. OB - PN: Obj Data Labs 09/23/23 05:02 09/23/23 05:02 Labs: Laboratory Results - last 24 hr 09/21/23 09/22/23 11:08 05:18 WBC 17.3 H RBC 3.72 L Hgb 10.0 L Hct 29.7 L MCV 79.8 L MCH 26.9 MCHC 33.7 RDW 15.3 H Plt Count 252 MPV 12.3 H Immature Gran % (Auto) 0.9 H Neut % (Auto) 83.7 H Lymph % (Auto) 7.1 L [place] % (Auto) 8.2 Eos % (Auto) 0.0 Baso % (Auto) 0.1 L Lymph # (Auto) 1.23 [place] # (Auto) 1.4 H Eos # (Auto) 0.0 Baso # (Auto) 0.0 Abs Immat Gran (auto) 0.15 H Absolute Neuts (auto) 14.5 H Absolute Nucleated RBC 0.000 Nucleated RBC % 0.0 RPR Non-reactive OB - PN A/P Assessment and Plan (1) Preeclampsia: Code(s): O14.90 - Unspecified pre-eclampsia, unspecified trimester Status: Acute (2) Delivery by section using low vertical uterine incision: Code(s): O82 - Encounter for delivery without indication Status: Acute Plan day: 2 Plan: routine care Comments: - PO pain meds - Regular diet - Ambulation and hydration encouraged - Continue pumping q2-3hr - Venofer 300mg IV once - Adalat 30mg started in PM; increased to 60mg this AM; will monitor BPs today - Ok to have pass to see son later today Time Spent With Patient Time: Total time spent is greater than 50% in coordination of care (as documented) at patient's floor/unit and/or counseling patient: Review of Systems Constitutional: Constitutional: Denies chills, Denies fever(s) and Denies headache(s) Eyes: Eyes: Denies change in vision ENT: Denies dizziness and Denies headache(s) Cardiovascular: Cardiovascular: Denies chest pain, Denies palpitations and Denies dyspnea Respiratory: Respiratory: Denies cough and Denies dyspnea Gastrointestinal: Gastrointestinal: Denies nausea and Denies vomiting Genitourinary: Comments: normal bleeding Neurologic: Denies dizziness and Denies headache(s) Endocrine: Endocrine: Denies palpitations Exam Const: General: cooperative, comfortable and no acute distress Orientation/consciousness: patient oriented x3 Resp: Effort & Inspection: normal respiratory effort Auscultation: clear to auscultation bilaterally Cardio: Rate: regular rate GI: Inspection: non-distended and incision (covered with clean dressing) GI Palp: Yes abdominal tenderness (appropriate) and Yes Soft to palpation Auscultation: normal bowel sounds : Other: fundus firm Skin: General skin exam: normal color Neuro: General: patient oriented x3 Extrem: General: normal to inspection Psych: Appearance: grossly normal Affect: normal affect Attitude: cooperative
[2023-09-23] MEDS: NIFEdipine 30 MG TAB.ER.24 PO (08:25)
[2023-09-23] MEDS: IRON SUCROSE COMPLEX 200 MG, IRON SUCROSE COMPLEX 100 MG in SODIUM CHLORIDE 0.9% IV 250 ML 176.67 MG IVPB (09:23)
[2023-09-23 09:45] VITALS: BP 139/82
[2023-09-23 11:48] VITALS: BP 141/81; PULSE 82; RESP 18; TEMP 36.9; O2SAT 100
--- NOTE | 2023-09-23 18:49 | PC.NURSE ---
1800 This RN's start of shift. pt is out on pass to see infant at [facility],
[2023-09-23 20:15] VITALS: BP 117/71; PULSE 76; RESP 18; TEMP 37; O2SAT 100
[2023-09-24] MEDS: ZOLPIDEM TARTRATE (*CRX) 5 MG TABLET PO (00:17)
[2023-09-24] MEDS: HYDROcodone/acetaminophen (*CRX) 10-325 MG TABLET 1 TAB PO ×5 (00:17→15:31)
[2023-09-24 00:24] VITALS: BP 138/87; PULSE 86; RESP 16; TEMP 36.6
[2023-09-24] MEDS: LIDOCAINE 5% PATCH 1 PATCH TRANSDERM (02:55)
[2023-09-24 04:34] VITALS: BP 116/72; PULSE 81; RESP 18; TEMP 36.8; O2SAT 100
[2023-09-24] MEDS: IBUPROFEN 600 MG TABLET PO ×2 (04:41→10:44)
[2023-09-24] MEDS: ACETAMINOPHEN 325 MG TABLET 650 MG PO ×2 (04:41→10:44)
--- NOTE | 2023-09-24 07:10 | PM.OBDSVD ---
DS: Admitting Diagnosis Discharge Date 09/23/23 <Brodie Elias MD - Last Filed: 09/27/23 10:06> 09/24/23 <Yudy Qureshi MD - Last Filed: 09/24/23 07:11> Admitting Diagnosis intrauterine preeclampsia with severe features gestation <Brodie Elias MD - Last Filed: 09/27/23 10:06> intrauterine preeclampsia with severe features transverse lie gestation <Yudy Qureshi MD - Last Filed: 09/24/23 07:11> DS: Discharge Diagnosis Discharge Diagnosis (1) Delivery by section using low vertical uterine incision: Code(s): O82 - Encounter for delivery without indication <Brodie Elias MD - Last Filed: 09/27/23 10:06> Status: Acute <Brodie Elias MD - Last Filed: 09/27/23 10:06> (2) Preeclampsia: Qualifiers: Trimester: third trimester Qualified Code(s): O14.93 - Unspecified pre-eclampsia, third trimester <Brodie Elias MD - Last Filed: 09/27/23 10:06> Code(s): O14.90 - Unspecified pre-eclampsia, unspecified trimester <Brodie Elias MD - Last Filed: 09/27/23 10:06> Status: Acute <Brodie Elias MD - Last Filed: 09/27/23 10:06> OB - DS: Summary Hospital Course Hospital Course: 22-year-old who presented at 34 weeks 6 days with complaint of right upper quadrant pain. Patient was found to have severely elevated blood pressures. Patient ruled in for preeclampsia with severe features. Recommended delivery. Patient underwent primary due to malpresentation. Patient received magnesium sulfate for eclampsia prophylaxis . The remainder of her postoperative course was uncomplicated. <Brodie Elias MD - Last Filed: 09/27/23 10:06> OB Procedures : NST, PIH Mgmt and Ultrasound <Brodie Elias MD - Last Filed: 09/27/23 10:06> OB Procedures Intrapartum: low cervical, transverse <Brodie Elias MD - Last Filed: 09/27/23 10:06> OB Procedures: : None <Brodie Elias MD - Last Filed: 09/27/23 10:06> Peripartum Data Delivery Method: Section <Brodie Elias MD - Last Filed: 09/27/23 10:06> Procedures: Procedures Operation Date: 09/21/23 14:00 Actual Procedure Side Surgeon p Section Brodie Elias MD <Brodie Elias MD - Last Filed: 09/27/23 10:06> complications: none <Brodie Elias MD - Last Filed: 09/27/23 10:06> 1: Gender: Male <Yudy Qureshi MD - Last Filed: 09/24/23 07:11> Disposition of : NICU <Yudy Qureshi MD - Last Filed: 09/24/23 07:11> Status at Discharge Functional status at discharge: independent ambulation <Brodie Elias MD - Last Filed: 09/27/23 10:06> Overall status at discharge: patient is progressing back to baseline <Brodie Elias MD - Last Filed: 09/27/23 10:06> Time Spent with Patient Time attestation: Total time spent providing and/or coordinating discharge services: <Brodie Elias MD - Last Filed: 09/27/23 10:06> Time spent: Less than 30 minutes <Brodie Elias MD - Last Filed: 09/27/23 10:06> Exam Const: General: comfortable and no acute distress <Brodie Elias MD - Last Filed: 09/27/23 10:06> General: cooperative and obese <Yudy Qureshi MD - Last Filed: 09/24/23 07:11> Resp: Effort & Inspection: normal respiratory effort <Brodie Elias MD - Last Filed: 09/27/23 10:06> Auscultation: clear to auscultation bilaterally <Brodie Elias MD - Last Filed: 09/27/23 10:06> Cardio: Rate: regular rate <Brodie Elias MD - Last Filed: 09/27/23 10:06> GI: Inspection: non-distended <Brodie Elias MD - Last Filed: 09/27/23 10:06> Inspection: incision (covered with BANG dressing) <Yudy Qureshi MD - Last Filed: 09/24/23 07:11> GI Palp: Yes Soft to palpation, No Firmness
[2023-09-24 08:00] VITALS: BP 142/79; PULSE 80; RESP 16; TEMP 37.1; O2SAT 100
[2023-09-24] MEDS: DOCUSATE SODIUM 100 MG CAPSULE PO (08:05)
[2023-09-24] MEDS: NIFEdipine 30 MG TAB.ER.24 60 MG PO (08:05)
[2023-09-24] MEDS: MULTIVIT/MIN/PREN/FOL AC/IRON TABLET 1 TAB PO (08:05)
--- NOTE | 2023-09-24 10:30 | PC.NURSE ---
Met with patient regarding pumping. Patient is comfortable with pumping and has a supply of pumped milk in the fridge to take to the NICU to baby. Patient declines needing any additional assistance or having any further questions at this time. Patient has the mom/baby guide to take home for reference. Patient verbalized understanding.
[2023-09-24 12:16] VITALS: BP 140/81; PULSE 97; RESP 18; TEMP 37.3; O2SAT 100
[2023-09-24] MEDS: SIMETHICONE 80 MG TAB.CHEW PO (12:24)
--- NOTE | 2023-09-24 16:45 | PC.NURSE ---
Mother is preparing for discharge and noticed she has some hard lumps under her right armpit. Assessed patient and educated her about clogged milk ducts. Encouraged breast massage prior to and during pumping as well as warm moist heat to lumps before pumping. Reviewed mastitis with mother and encouraged full emptying of breasts with pumping. Mother verbalized her understanding. She is also going to take her pumped milk to the NICU and she was encouraged to take all of her pump parts with her to use at [facility].
[2023-09-25 13:33] VITALS: BP 140/77; PULSE 96; RESP 18; TEMP 36.6; O2SAT 100
== END 2023-09-24 16:55 | disposition home or self-care (01) | DRG 540 ==
LOC: ANHOBPP 07:25 → ANHOB2 09-22 10:55 → ANHOBPP 09-27 14:14 → ANHOB2 09-27 14:14
PROVIDERS: Admitting Provider Student in an Organized Health Care Education/Training Program; Visit Provider Obstetrics & Gynecology
PROC: 10D00Z1 Extraction of Products of Conception, Low, Open Approach (ICD-10-PCS; CPT 59514; principal; 2023-09-21 14:00)
DX: O14.14 Severe pre-eclampsia complicating childbirth (principal); O32.2XX0 Maternal care for transverse and oblique lie, not applicable or unspecified; Z3A.34 34 weeks gestation of pregnancy; Z37.0 Single live birth
CPT/HCPCS: 36415; 76819; 80053; 81001; 82570; 84156; 84550; 85025; 85027; 86592; 86703; 86850; 86900; 86901; 87086; 88305; A9270; G0378; G0379; G0432; J0690; J0702; J1170; J1756; J1885; J2250; J2270; J2274; J2405; J2590; J3010; J3475; J3480; J7050; J7120

== ENCOUNTER 2023-12-21 11:29 | Outpatient (CLI) | payer OTHER, SELFPAY ==
[2023-12-21 11:50] LABS: Basophils Percent Auto 0.6 % (0.2-1.2); Eosinophils Absolute Auto 0.1 K/mm3 (0-0.3); Hematocrit 38.5 % (37.0-47.0); Hemoglobin 12.3 g/dL (12.0-15.0); Immature Granulocyte Absolute 0.01 K/mm3 (0.00-0.031); Immature Granulocyte Percent A 0.1 % (0-0.5); Lymphocytes Absolute Auto 2.42 K/mm3 (0.9-3.2); Lymphocytes Percent Auto 34.8 % (18.3-44.2); Mean Corpuscular HGB Conc 31.9 g/dl (32-36); Mean Corpuscular Hemoglobin 25.7 pg (26-34); Mean Corpuscular Volume 80.4 fl (80-100); Mean Platelet Volume 10.4 fl (7.4-10.4); Monocytes Absolute Auto 0.5 K/mm3 (0.1-0.6); Monocytes Percent Auto 7.2 % (2.6-8.5); Neutrophils Absolute Auto 3.9 K/mm3 (1.3-6.7); Neutrophils Percent Auto 56.3 % (45.5-73.1); Platelet Count Result 305 k/mm3 (150-375); Red Blood Count 4.79 M/mm3 (4.2-5.4); Red Cell Distribution Width 15.3 % (11.5-14.5)
[2023-12-21 12:05] LABS: Alanine Aminotransferase 24 U/L (6-35); Albumin Level 4.5 g/dL (3.5-5.1); Alkaline Phosphatase 63 U/L (38-126); Amylase 86 U/L (30-110); Anion Gap 7 mmol/L (4-12); Aspartate Amino Transferase 28 U/L (14-36); Bilirubin,Total 0.3 mg/dL (0.2-1.3); Blood Urea Nitrogen 10 mg/dL (7-17); Calcium 9.8 mg/dL (8.4-10.2); Carbon Dioxide 29 mmol/L (22-30); Chloride 104 mmol/L (98-107); Estimated Glomerular Filt Rate > 60; Glucose 92 mg/dL (65-110); Lipase 95 U/L (23-300); Sodium 140 mmol/L (137-145)
== END 2023-12-21 11:30 | disposition home or self-care (01) ==
LOC: ANHSURGERY 11:34
PROVIDERS: PCP Nurse Practitioner Family; Visit Provider Surgery
DX: K80.10 Calculus of gallbladder with chronic cholecystitis without obstruction (principal)
CPT/HCPCS: 36415; 80048; 80076; 82150; 83690; 85025

== ENCOUNTER 2023-12-23 03:02 | Day surgery (SDC) | payer OTHER, SELFPAY ==
--- NOTE | 2023-12-16 17:33 | PC.NURSE ---
Report to the Outpatient Waiting Room, entrance under the green pavilion located off [facility], at time 1000 on date 12/23/23. Planned Procedure Time: 1200.? Time changes happen often and if your time is changed the preop area will call you the afternoon before. - You and your visitor will be asked to self-screen and do not enter if you have any COVID symptoms. Please call surgeon if you need to reschedule. - A mask is optional within the hospital at this time. Patients may have clear liquids (water, carbonated beverages, clear teas, apple juice) until 3 hours prior to surgery with a maximum of 20 ounces. 0900 - No food from midnight until time of surgery and no smoking - Infants may have breast milk until 4 hours before surgery, formula 6 hours prior to surgery. - Children will be allowed to drink immediately following surgery.? If applicable, please bring a bottle or sippy cup to assist with drinking. Juice, water, soda, and popsicles are readily available.? For infants on formula, please bring formula the day of surgery.? Pacifiers are allowed. Take only the following medications with a SIP of water on the morning of surgery: None DO NOT STOP ANY OF YOUR OTHER PRESCRIPTION MEDICATIONS PRIOR TO SURGERY EXCEPT THE FOLLOWING Medications to discontinue per physician: Please stop taking your ferrous sulfate (iron supplement) & vitamin 3 days prior to your procedure. Ask Dr. Ramirez's office regarding when to stop taking NSAID (Ibuprofen) Date to take last dose: 12/20/23 Please no make-up, nail armenian, hairspray, perfume, deodorant, or body powder the day of surgery.? No jewelry (including any body piercings) or valuables the day of surgery, leave them at home.? Please take a shower or bath the night before, or the morning of, surgery with an antibacterial soap.? Wear comfortable, loose fitting clothing.? Children are encouraged to wear pajamas. - Jewelry must be removed prior to entering the operating room.? Rings and piercings that are not removed may be cut off. - The hospital will not accept responsibility for valuables.? - Please leave all valuables, including medications, at home the day of surgery. If you are going home after surgery, a licensed semi driver must drive you home.? - NO public transportation without another adult if you receive anesthesia. - We recommend that an adult stay with you for 24 hours following discharge. - We also recommend that you do not drive, make important decision, drink alcoholic beverages, or take any drugs that were not prescribed by your health care provider for at least 24 hours after your discharge time. For Pediatric surgeries, we recommend two adults accompany the child home. Follow any additional instructions given to you from your surgeon. Telephone instructions given to Patient- Liseth Rodríguez and asked if any additional questions and then verbalized understanding. Patient advised to call surgeon office or pre surgery nurse liaison [phone] if any additional questions.
[2023-12-16 17:45] VITALS: BMI 45.2
[2023-12-23] VITALS (13 sets, daily range): BP systolic 128–154; BP diastolic 82–104; PULSE 66–90; RESP 12–22; TEMP 36.1–36.2; O2SAT 95–100
[2023-12-23] MEDS: ACETAMINOPHEN 500 MG TABLET 1000 MG PO (11:19)
[2023-12-23] MEDS: LACTATED RINGERS 1,000 ML 30 ML IV CONT ×2 (11:20→13:30)
[2023-12-23] MEDS: KETOROLAC 15 MG/ML VIAL (*BKC) IV PUSH (11:21)
--- NOTE | 2023-12-23 11:36 | WPDANESEPPF ---
Anes - Initial Pre Proc Eval Procedure: Operation Date: 12/23/23 12:00 Proposed Procedures p Laparoscopic Cholecystectomy - Shon Ramirez MD Date/Time: 12/23/23 11:36 Surgeon: Shon Ramirez MD Pre Op Diagnosis: Chr Cholecystitis with stones Patient Data Age: 23 Gender: F Height: 1.68 m Weight: 127.2 kg Allergies Allergy/AdvReac Type Severity Reaction Status Date / Time No Known Allergies Allergy Verified 12/23/23 11:29 Home Medications Medication Instructions Recorded Confirmed Type ferrous sulfate 325 mg (65 mg 325 mg PO DAILY #90 tabs 09/22/23 12/23/23 Rx iron) tablet ibuprofen 600 mg tablet 600 mg PO Q6H PRN pain #40 tabs 09/22/23 12/16/23 Rx vitamin#30 30 mg iron-10 1 cap PO DAILY 10/19/23 12/23/23 History mg iron-folic acid 1 mg-omg3 capsule Laboratory Tests 12/23/23 11:03 Blood Type Pending Antibody Screen Pending Patient hx anesthesia problems: none Family hx anesthesia problems: none Results Review: All pre-operative results and documents have been reviewed as part of the pre-operative evaluation. [facility] Past Medical History Medical History Abnormal glucose tolerance in History of polycystic ovarian syndrome Suppression of menses Surgical History Surgical History History of delivery History of gynecologic surgery Hysteroscopy, D&C, myomectomy Family History Family History Father Hypertension Mother Multiple sclerosis Social History Social History Smoking status: Never smoker Second hand tobacco smoke exposure: No Alcohol intake: current Drinks per week: 2 Alcohol use details: 2-3 times per month Substance use: former Substance use type: marijuana Do You Feel Safe in your Home?: Yes Lack of Transportation: No Lack of Food: Never True Current Housing: I Have Housing Concerned About Future Housing: No Difficulty Paying Gas/Electric Bills: No Difficulty Paying for Meds: No Currently Unemployed: No Education: Bachelor's Degree Difficulty w/ Childcare or Family Care: No Living arrangements: other Additional living arrangements comments: WITH BOYFRIEND Occupation/Education: occupation Gender identity (if verbalized by the patient): Female Sexual Orientation (if Verbalized by the Patient): Straight or Heterosexual Spiritual care concerns: No Anes - Eval Final PreProcedure Day of Procedure 12/23/23 11:36 Patient weight: morbidly obese Heart: regular rate and rhythm Lungs: clear to auscultation Airway: Mallampati scale class 1 Neurological: alert and oriented Last oral intake: >/= 8 hours ASA classification: III Emergent: no Anesthetic plan: proceed Anesthesia type and monitoring: general ETT and standard monitoring Results Review: All pre-operative results and documents have been reviewed as part of the pre-operative evaluation. Morbid obesity, hx of PCOS, gall bladder disease. Informed Consent: The patient's anesthetic plan and its attendant risks and benefits were discussed with the patient/family/POA. Questions were solicited and answers provided to the satisfaction of the patient/family/POA.
--- NOTE | 2023-12-23 11:48 | WPDHPUPDATE1 ---
History and Physical Update Update Date/Time: 12/23/23 11:48 History and Physical has been reviewed, including an updated exam of the patient. There are NO changes in the patient's condition. Risks, benefits, and alternatives have been discussed and questions answered. Patient agrees to proceed with procedure.
[2023-12-23] MEDS: ceFAZolin 3 GM/D5W 100 ML 100 ML IVPB (11:58)
[2023-12-23 12:10] LABS: BEDSIDEPREGUCG Negative (Negative)
[2023-12-23] MEDS: BUPIVACAINE/EPINEPHRINE 0.5% 50 ML VIAL 20 ML INFILTRATE (12:38)
--- NOTE | 2023-12-23 13:40 | W.PM.PROC2 ---
Procedure Note - Detailed Date of Procedure 12/23/23 Pre-op Diagnosis Chr Cholecystitis with stones Post-op Diagnosis Same Procedure Performed Laparoscopic cholecystectomy Surgeon Shon Ramirez MD Supervisor [employer] Josiane DE LA PAZ Anesthesia General and Local Indications Patient has had recurrent episodes of postprandial epigastric and right upper quadrant pain associated with nausea and vomiting. She was found to have gallstones on imaging. She is taken to surgery now for laparoscopic cholecystectomy. Findings Moderate chronic inflammation, no biliary ductal dilatation, normal liver, gallstones not noted but gallbladder was not opened Description of Procedure Patient was taken to surgery and induced into general anesthesia. The abdomen is prepped and draped. Trocars were placed in usual fashion using [employer] optical trocars and a 5 mm camera. Prior to any trocar placement, the varies needle was introduced and the abdomen was insufflated with CO2. Once the trocars were in place we paced placed the patient in reverse Trendelenburg. The gallbladder was partially intrahepatic over its upper 3rd. We decompressed the gallbladder with a laparoscopic aspirator. The cholecystotomy was closed with a Vicryl endoloop. Gallbladder was then retracted anterosuperiorly. There were numerous adhesions to the gallbladder which were taken down sharply and using cautery for hemostasis. Eventually we dissected down and exposed the infundibulum. Traction was placed on the infundibulum and then dissection was carried out in the cholecystohepatic triangle. There were lot of adhesions and inflammation in the area. Using slow, careful dissection, we were able to delineate the cystic artery and cystic duct. The gallbladder was dissected off the liver at its lower 3rd. Critical view was achieved. We then securely clipped and divided the cystic duct and cystic artery. The gallbladder was then further dissected free completely from the liver. It was placed in an Endo-Catch bag retrieved through the 10 11 epigastric trocar site. We did have to enlarge the epigastric trocar site to some degree to accommodate the gallbladder. We replaced the epigastric trocar and then reviewed the gallbladder fossa and right upper quadrant. Irrigation and suctioning were carried out several times. All looked good with no evidence of bleeding or bile leakage. We then removed the epigastric trocar and using the Jaya cone and Jaya-Eliezer suture Passer device placed an 0 Vicryl suture in the fascia at the epigastric incision. We replaced the epigastric trocar and then evacuated CO2. We removed the trocar sleeves. The Vicryl suture at the epigastric site was tied closing the fascial defect. All skin wounds were closed with subcuticular 4-0 Monocryl skin suture. The wounds were dressed with Exofin surgical adhesive. The patient was then awakened and taken to recovery in good condition. Sponge and needle counts were correct x2. Estimated Blood Loss -10 Drains No Packing No Pathology Yes (Gallbladder) Complications None Condition Stable Disposition PACU [facility] Billing Surgery - Charge Forward: Surgery Billing (Laparoscopic cholecystectomy)
[2023-12-23] MEDS: fentaNYL CITRATE INJ (*CRX) 100 MCG/2 ML VIAL 25 MCG IV PUSH ×8 (13:59→14:31)
[2023-12-23] MEDS: HYDROmorphone HCL INJ (*CRX) 1 MG/ML SYR 0.25 MG IV PUSH ×4 (14:44→15:37)
[2023-12-23] MEDS: oxyCODONE HCL (*CRX) 5 MG TAB IR PO (15:48)
== END 2023-12-23 16:40 | disposition home or self-care (01) ==
PROVIDERS: PCP Nurse Practitioner Family; Visit Provider Surgery
PROC: 0FT44ZZ Resection of Gallbladder, Percutaneous Endoscopic Approach (ICD-10-PCS; CPT 47562; principal; 2023-12-23 12:00)
DX: K80.10 Calculus of gallbladder with chronic cholecystitis without obstruction (principal); E66.01 Morbid (severe) obesity due to excess calories; Z68.42 Body mass index [BMI] 45.0-49.9, adult
CPT/HCPCS: 47562; 36415; 86850; 86900; 86901; 88304; A9270; J0690; J1100; J1171; J1596; J1885; J2250; J2405; J2704; J3010; J7120

== ENCOUNTER 2024-01-07 07:41 | Outpatient (CLI) | payer OTHER, SELFPAY ==
--- NOTE | ~2024-01-07 | US_ITS ---
EXAMINATION: US right upper quadrant DATE: 01/07/2024 08:36 INDICATION: Right upper quadrant abdominal pain postcholecystectomy. TECHNIQUE: Multiple grayscale and Doppler ultrasound images of the abdomen were obtained. COMPARISON: None FINDINGS: The pancreatic head and body are normal in appearance. The pancreatic tail is not visualized. Liver has normal echogenicity and contour, with a smooth surface. No liver lesion identified. No intrahepat ic biliary duct dilation suspected. Portal venous flow was seen in the hepatopetal, normal direction and has normal Doppler waveform. Gallbladder is not visualized and reportedly surgically absent. Comm on bile duct measures 2 mm in maximal diameter which is normal. Visualized portion of the right kidne y demonstrates normal echogenicity and contour with no hydronephrosis. Visualized portion of the infe rior vena cava is normal. IMPRESSION: 1. Normal right upper quadrant ultrasound post cholecystectomy. Reviewed, dictated and finalized at location A.
[2024-01-07 08:59] LABS: Basophils Percent Auto 0.5 % (0.2-1.2); Eosinophils Absolute Auto 0.2 K/mm3 (0-0.3); Eosinophils Percent Auto 2.3 % (0-4.4); Hemoglobin 12.1 g/dL (12.0-15.0); Immature Granulocyte Absolute 0.02 K/mm3 (0.00-0.031); Immature Granulocyte Percent A 0.3 % (0-0.5); Lymphocytes Absolute Auto 2.59 K/mm3 (0.9-3.2); Lymphocytes Percent Auto 35.2 % (18.3-44.2); Mean Corpuscular Hemoglobin 24.7 pg (26-34); Mean Corpuscular Volume 79.6 fl (80-100); Mean Platelet Volume 10.3 fl (7.4-10.4); Monocytes Absolute Auto 0.6 K/mm3 (0.1-0.6); Monocytes Percent Auto 7.9 % (2.6-8.5); Neutrophils Percent Auto 53.8 % (45.5-73.1); Platelet Count Result 333 k/mm3 (150-375); Red Cell Distribution Width 14.7 % (11.5-14.5); White Blood Count 7.4 K/mm3 (4.5-10.0)
[2024-01-07 09:14] LABS: Alanine Aminotransferase 19 U/L (6-35); Albumin Level 4.4 g/dL (3.5-5.1); Alkaline Phosphatase 64 U/L (38-126); Aspartate Amino Transferase 26 U/L (14-36); Bilirubin,Total 0.4 mg/dL (0.2-1.3); Lipase 75 U/L (23-300)
== END 2024-01-07 07:42 | disposition home or self-care (01) ==
PROVIDERS: PCP Nurse Practitioner Family; Visit Provider Surgery
DX: R10.11 Right upper quadrant pain (principal)
CPT/HCPCS: 36415; 76705; 80076; 83690; 85025

== ENCOUNTER 2024-09-30 09:06 | Outpatient (CLI) | payer OTHER, SELFPAY ==
[2024-09-30 09:45] LABS: Hematocrit 39.7 % (37.0-47.0); Hemoglobin 12.4 g/dL (12.0-15.0); Immature Granulocyte Percent A 0.3 % (0-0.5); Lymphocytes Absolute Auto 2.51 K/mm3 (0.9-3.2); Mean Corpuscular HGB Conc 31.2 g/dl (32-36); Mean Corpuscular Hemoglobin 25.3 pg (26-34); Mean Corpuscular Volume 81.0 fl (80-100); Nucleated Red Blood Cells Absolute Auto 0.000 K/mm3 (0.0-0.012); Nucleated Red Blood Cells Perc 0.0 % (0.0-0.2); Platelet Count Result 301 k/mm3 (150-375); Red Blood Count 4.90 M/mm3 (4.2-5.4); White Blood Count 6.9 K/mm3 (4.5-10.0)
[2024-09-30 09:55] LABS: Hemoglobin A1C 5.6 % (<5.7)
[2024-09-30 10:06] LABS: Alanine Aminotransferase 22 U/L (6-35); Albumin Level 4.2 g/dL (3.5-5.1); Alkaline Phosphatase 56 U/L (38-126); Anion Gap 9 mmol/L (4-12); Aspartate Amino Transferase 35 U/L (14-36); Bilirubin,Total 0.4 mg/dL (0.2-1.3); Blood Urea Nitrogen 13 mg/dL (7-17); Calcium 9.1 mg/dL (8.4-10.2); Carbon Dioxide 25 mmol/L (22-30); Chloride 104 mmol/L (98-107); Cholesterol 180 mg/dL (0-200); Estimated Glomerular Filt Rate > 60; Glucose 94 mg/dL (65-110); HDL Direct 33 mg/dL; Potassium 3.8 mmol/L (3.4-5.0); Sodium 138 mmol/L (137-145); Total Protein 8.2 g/dL (6.3-8.2); Triglycerides 90 mg/dL (<150)
[2024-09-30 10:39] LABS: Thyroid Stimulating Hormone Reflex 1.180 uIU/mL (0.465-4.68)
[2024-10-01 07:08] LABS: FSH 9.7 mIU/mL (.); LH 56.0 mIU/mL (.)
== END 2024-09-30 09:07 | disposition home or self-care (01) ==
LOC: ANHLAB 09:10
PROVIDERS: PCP Nurse Practitioner Family; Visit Provider Nurse Practitioner Family
DX: Z00.00 Encounter for general adult medical examination without abnormal findings (principal); Z13.29 Encounter for screening for other suspected endocrine disorder; Z13.6 Encounter for screening for cardiovascular disorders; E28.2 Polycystic ovarian syndrome; E88.819 Insulin resistance, unspecified; E55.9 Vitamin D deficiency, unspecified
CPT/HCPCS: 36415; 80053; 80061; 82306; 83001; 83002; 83036; 84443; 85025

== ENCOUNTER 2025-02-28 08:30 | Outpatient (CLI) | payer OTHER, SELFPAY ==
[2025-02-28 09:12] LABS: Hematocrit 39.1 % (37.0-47.0); Hemoglobin 12.8 g/dL (12.0-15.0); Mean Corpuscular HGB Conc 32.7 g/dl (32-36); Mean Corpuscular Hemoglobin 26.1 pg (26-34); Mean Corpuscular Volume 79.6 fl (80-100); Platelet Count Result 290 k/mm3 (150-375); Red Blood Count 4.91 M/mm3 (4.2-5.4); White Blood Count 7.7 K/mm3 (4.5-10.0)
[2025-02-28 09:34] LABS: Alanine Aminotransferase 19 U/L (6-35); Albumin Level 4.2 g/dL (3.5-5.1); Alkaline Phosphatase 65 U/L (38-126); Anion Gap 7 mmol/L (4-12); Aspartate Amino Transferase 32 U/L (14-36); Bilirubin,Total 0.3 mg/dL (0.2-1.3); Blood Urea Nitrogen 5 mg/dL (7-17); Calcium 9.3 mg/dL (8.4-10.2); Carbon Dioxide 21 mmol/L (22-30); Chloride 106 mmol/L (98-107); Estimated Glomerular Filt Rate > 60; Glucose 89 mg/dL (65-110); Potassium 3.5 mmol/L (3.4-5.0); Sodium 134 mmol/L (137-145); Total Protein 7.9 g/dL (6.3-8.2); Uric Acid 5.2 mg/dL (2.5-7.5)
[2025-02-28 09:41] LABS: Total Protein Urine Random 15 mg/dL
[2025-02-28 10:11] LABS: HIV 1/2 Ab P24 Ag Result Negative (Negative)
[2025-02-28 10:14] LABS: Syphilis IgG/IgM Antibody Non-Reactive (Nonreactive)
[2025-02-28 10:17] LABS: Hepatitis B Surface Antigen Negative (Negative)
[2025-03-01 07:09] LABS: Cytomegalovirus (CMV) Ab, IgG 6.30 U/mL (0.00-0.59); Varicella-Zoster Ab, IgG Reactive (Non Reactive)
[2025-03-06 11:08] LABS: Parvovirus B19, IgG 5.4 index (0.0-0.8); Parvovirus B19, IgM 0.1 index (0.0-0.8)
== END 2025-02-28 08:31 | disposition home or self-care (01) ==
LOC: ANHLAB 08:31
PROVIDERS: PCP Student in an Organized Health Care Education/Training Program; Visit Provider Student in an Organized Health Care Education/Training Program
DX: N91.2 Amenorrhea, unspecified (principal); Z87.59 Personal history of other complications of pregnancy, childbirth and the puerperium
CPT/HCPCS: 36415; 80053; 81050; 82570; 84156; 84550; 84702; 85027; 86593; 86644; 86703; 86747; 86762; 86787; 86850; 86900; 86901; 87086; 87340; G0432